=== PATIENT | male | born 1970 ===

== ENCOUNTER 2016-09-22 00:55 | Inpatient (IN) | payer MEDICAID, OTHER ==
[2016-09-22] VITALS (18 sets, daily range): BP systolic 104–127; BP diastolic 61–96; PULSE 70–98; RESP 16–23; Ht 180.3 cm; Wt 82.0 kg
[~2016-09-22] VITALS: Ht 180.3 cm; Wt 82.0 kg
[2016-09-22] MEDS ORDERED: SOD CHLORIDE 0.9% 500 ML IV STA (00:59)
[2016-09-22] MEDS ORDERED: HEPARIN 5,000 UNIT/0.5 ML VIAL SC ONE (01:00)
[2016-09-22] MEDS ORDERED: TICAGRELOR 90 MG TABLET PO ONE (01:00)
[2016-09-22] MEDS ORDERED: ONDANSETRON 4 MG INJ IV STA (01:02)
[2016-09-22] MEDS ORDERED: morphine 4 MG/ML VIAL IV STA (01:02)
[2016-09-22 01:10] LABS: ADD SCAN DIFF NO
[2016-09-22 01:13] LABS: BASOPHIL # 0.1 10^3/ul (0.0-0.1); BASOPHILS % 0.3 % (0.0-2.0); EOSINOPHILS % 0.1 % (0.0-7.0); HEMATOCRIT 44.3 % (42.0-52.0); HEMOGLOBIN 14.9 g/dl (14.0-18.0); LYMPHOCYTES # 1.4 10^3/ul (0.8-2.9); LYMPHOCYTES % 9.1 % (15.0-51.0); MEAN CORPUSCULAR HEMOGLOBIN 29.5 pg (29.0-33.0); MEAN CORPUSCULAR HGB CONC 33.6 g/dl (32.0-37.0); MEAN CORPUSCULAR VOLUME 87.7 fl (82.0-101.0); MEAN PLATELET VOLUME 9.6 fl (7.4-10.4); MONOCYTE # 0.6 10^3/ul (0.3-0.9); MONOCYTES % 3.7 % (0.0-11.0); NEUTROPHIL # 13.4 10^3/ul (1.6-7.5); NEUTROPHILS % 86.1 % (39.0-77.0); PLATELET COUNT 345 10^3/UL (140-415); RED BLOOD COUNT 5.05 10^6/ul (4.70-6.10); RED CELL DISTRIBUTION WIDTH 11.2 % (11.5-14.5); WHITE BLOOD COUNT 15.6 10^3/ul (4.8-10.8)
[2016-09-22] MEDS ORDERED: IODIXANOL LOCM 50 ML BTL ONE (01:13)
[2016-09-22] MEDS ORDERED: IODIXANOL LOCM 100 ML BTL ONE ×3 (01:13→01:59)
[2016-09-22] MEDS ORDERED: LIDOCAINE 1% (MDV) 20 ML INJ ONE (01:13)
[2016-09-22] MEDS ORDERED: NITROGLYCERIN (IC) 100 MCG/ML INJ ONE (01:14)
[2016-09-22] MEDS ORDERED: VERAPAMIL 5 MG INJ ONE (01:14)
--- NOTE | 2016-09-22 01:16 | ERA ---
ER Documentation Chief Complaint Date/Time DATE: 09/22/16 TIME: 01:13 Chief Complaint Chest pain code stemi from [facility]. HPI This is a 45-year-old male who began having chest pain approximately 2 hours ago described as substernal chest pressure with no radiation no shortness of breath but he did have diaphoresis. No palpitations no syncope or dizziness. Patient has a history of hypertension and diabetes does not smoke no high cholesterol. Patient was seen at [facility] in the emergency room and he was transferred here for higher level of care. Patient's pain currently is 4 out of 10. He received nitroglycerin at [place] [facility] and his blood pressure dropped to 80 and he received some IV fluids which raised his blood pressure. The patient has a history of itching after aspirin so aspirin was held. ROS All systems reviewed and are negative except as per history of present illness. Allergies Allergies: Coded Allergies: aspirin (Verified Allergy, Unknown, 09/22/16) FmHx Family History: No coronary disease Physical Exam Vitals Vital Signs Date Time Temp Pulse Resp B/P Pulse Ox O2 Delivery O2 Flow Rate FiO2 09/22/16 01:11 96 20 130/88 100 Room Air 09/22/16 01:02 Nasal Cannula 4 09/22/16 01:00 94 20 113/66 100 Physical Exam Const: Well-developed, well-nourished Head: Atraumatic, normocephalic Eyes: Normal Conjunctiva, PERRLA, EOMI, normal sclera, no nystagmus ENT: Normal External Ears, Nose and Mouth, moist mucus membranes. Neck: Full range of motion. No meningismus, no lymphadenopathy. Resp: Clear to auscultation bilaterally, no wheezing, rhonchi, rales Cardio: Regular rate and rhythm, no murmurs, S1 S2 present Abd: Soft, non tender x 4, non distended. Normal bowel sounds, no guarding or rebound, no pulsitile abdominal masses or bruits Skin: No petechiae or rashes, no ecchymosis , no maculopapular rash Back: No midline or flank tenderness Ext: No cyanosis, or edema, FROM x 4, normal inspection, neurovascularly intact x 4 Neur: Awake and alert, STR 5/5 x 4, sensation intact x 4, no focal findings, cerebellum intact Psych: Normal Mood and Affect Results 24 hrs Current Medications Medications (Trade) Dose Ordered Sig/Leander Route PRN Reason Start Time Stop Time Status Last Admin Dose Admin Sodium Chloride (NS) 500 ml @ 500 mls/hr Q1H STAT IV 09/22/16 00:59 09/22/16 01:58 09/22/16 01:11 Ticagrelor (Brilinta) 180 mg ONCE ONCE PO 09/22/16 01:00 09/22/16 01:02 DC 09/22/16 01:07 Heparin Sodium (Porcine) (Heparin (5000 Units/0.5 ml)) 5,000 unit ONCE ONCE SC 09/22/16 01:00 09/22/16 01:02 DC 09/22/16 01:08 Morphine Sulfate (morphine) 4 mg ONCE STAT IV 09/22/16 01:02 09/22/16 01:03 DC 09/22/16 01:08 Ondansetron HCl (Zofran Inj) 4 mg ONCE STAT IV 09/22/16 01:02 09/22/16 01:03 DC 09/22/16 01:07 Procedures/MDM EKG: Rate/Rhythm: Normal sinus rhythm with ST elevation in leads I, aVL with Q waves in leads V1 through V3 with reciprocal ST elevation, there is ST depression in leads II, 3 QRS, ST, QT: NORMAL TN, QRS, QT] Impression: [Acute [place] Reducing Salon Attendant was notified prior to patient's arrival Warehouse Engineer was called and patient taken to Warehouse Engineer at 0116 Critical Care Time: 30 minutes Treatments/Evaluations: Close monitoring and treatment of unstable vital signs, cardiorespiratory, and neurologic status, while maintaining tight balance of fluid, respiratory, and cardiac interventions. This time includes discussing the case with the patient and the patient's family. This time does not include all procedures stated elsewhere in this record. This time also includes reviewing old records, labs and radiological studies. This time includes examining and re-examining the patient. Additionally, this time also includes arranging care with admitting and consulting physicians. Departure Diagnosis: Primary Impression: Acute [place] Qualified Code: I21.21 - Acute ST elevation myocardial infarction (STEMI) involving left circumflex coronary artery Condition: Stable SPENSER DUMONT DO September 22, 2016 01:16
[2016-09-22 01:17] LABS: CALCIUM 9.2 mg/dl (8.4-10.2); CREATININE 1.04 mg/dl (0.61-1.24); POTASSIUM 5.3 mmol/L (3.5-5.1)
[2016-09-22] MEDS ORDERED: ASPIRIN 325 MG TAB ONE (01:21)
[2016-09-22] MEDS ORDERED: MIDAZOLAM 1 MG/ML 2 ML INJ ONE (01:23)
[2016-09-22] MEDS ORDERED: FENTAnyl 50 MCG/ML VIAL ONE (01:23)
--- NOTE | 2016-09-22 01:24 | CONS ---
Date/Time of Note Date/Time of Note DATE: 09/22/16 TIME: 01:22 Assessment/Plan Assessment/Plan Chief Complaint/Hosp Course Impression: Anterior STEMI Abnormal EKG Chest pain DM HTN Recommendation/plan: proceed emergently with cardiac cath; further recs pending results of angiogram. Problems: Consultation Date/Type/Reason Admit Date/Time Date of Consultation: September 22, 2016 Type of Consultation: Cardiology Reason for Consultation STEMI Hx of Present Illness The patient is a 45 y/o male with history of DM, HTN presents as transfer from [facility] for acute STEMI; transferred emergently to cardiac laborer [facility] per Acute [place] protocol. Exam/Review of Systems Vital Signs Vitals Vital Signs Date Time Temp Pulse Resp B/P Pulse Ox O2 Delivery O2 Flow Rate FiO2 09/22/16 01:11 96 20 130/88 100 Room Air 09/22/16 01:02 4 Exam Respiratory: clear to auscultation, normal air movement Cardiovascular: nl pulses, regular rate and rhythm Gastrointestinal: soft Extremities: normal pulses Results Result Diagram: 09/22/16 0055 Results 24 hrs Laboratory Tests Test 09/22/16 00:55 White Blood Count 15.6 H Red Blood Count 5.05 Hemoglobin 14.9 Hematocrit 44.3 Mean Corpuscular Volume 87.7 Mean Corpuscular Hemoglobin 29.5 Mean Corpuscular Hemoglobin Concent 33.6 Red Cell Distribution Width 11.2 L Platelet Count 345 Mean Platelet Volume 9.6 Neutrophils % 86.1 H Lymphocytes % 9.1 L Monocytes % 3.7 Eosinophils % 0.1 Basophils % 0.3 Nucleated Red Blood Cells % 0.0 Neutrophils # 13.4 H Lymphocytes # 1.4 Monocytes # 0.6 Eosinophils # 0.0 Basophils # 0.1 Nucleated Red Blood Cells # 0.0 FELIPE VÁSQUEZ September 22, 2016 01:24
[2016-09-22 01:34] LABS: TROPONIN-I 0.202 ng/ml (0.00-0.12)
[2016-09-22] MEDS ORDERED: HEPARIN 1000 UNITS/ML 10 ML INJ ONE (01:41)
[2016-09-22 01:42] LABS: INR 0.95; PARTIAL THROMBOPLASTIN TIME 27.5 Sec (25.0-35.0); PROTIME 12.7 Sec (12.2-14.2)
--- NOTE | 2016-09-22 01:59 | RADRPT ---
PROCEDURE: Chest. CLINICAL INDICATION: Chest pain. TECHNIQUE: Single frontal view of the chest was obtained. COMPARISON: None. FINDINGS: The cardiac silhouette is enlarged. The aortic arch is unremarkable. There is mild pulmonary venou s congestion. There is no focal consolidation or pleural effusion. There is no pneumothorax. IMPRESSION: Mild cardiomegaly and pulmonary venous congestion. .Massimo Meraz MD, Date Time Electronically viewed and signed by .Massimo Meraz MD, MD on 09/22/2016 01:58 .T/
[2016-09-22] MEDS ORDERED: SOD CHLORIDE 0.45% 1,000 ML IV SCH (02:10)
--- NOTE | 2016-09-22 02:18 | EN ---
Date/Time of Note Date/Time of Note DATE: 09/22/16 TIME: 02:12 Event Note Cardiology Cardiology Event Note DATE OF PROCEDURE: 09/22/2016 ANTHROPOLOGICAL LINGUIST: Yeison Vásquez MD PROCEDURES PERFORMED: 1. Balloon angioplasty and stent placement of the mid LAD with drug-eluting stent Synergy 3.0 x 12 2. Left heart catheterization. 3. Right femoral angiogram. 4. Closure device applied to right femoral arteriotomy site. PREINTERVENTION DIAGNOSIS: 1. Acute Anterior ST elevation myocardial infarction. POSTINTERVENTION DIAGNOSES: 1. Acute Anterior ST elevation myocardial infarction. SEDATION: Conscious sedation with fentanyl 50 mcg IV and Versed 1 mg IV. DESCRIPTION OF PROCEDURE: The patient placed on surveillance system monitor, pulse oximetry and supplemental oxygen as necessary. The right groin [] was prepped and draped in a sterile fashion and infiltrated with 1% lidocaine. Via the Seldinger technique, the right femoral artery was accessed. A 6-Turkish sheath was inserted and through this the right coronary catheter and left coronary catheter and pigtail were advanced into the right coronary artery and left coronary artery and the left ventricle. Placement confirmed by fluoroscopy and hemodynamics. CATHETERIZATION FINDINGS: 1. Left main: 20% distal disease 2. LAD: Large caliber vessel with mid 90% occlusion 3. Circumflex: 40-50% diffuse disease 4. Obtuse marginal: 80% proximal disease 5. RCA: Large dominant vessel with 30% diffuse disease 6. PDA: Proximal 80% disease HEMODYNAMICS: LVEDP 20. No significant aortic valve gradient on pigtail pullback. RATIONALE FOR INTERVENTIONAL PROCEDURE: Decision was made to intervene on the LAD due to the occlusive nature of the lesion angiographically and patient's presentation of chest pain in the setting of anterior STEMI. Drug-eluting stent was placed because of vessel size and no contraindication to dual antiplatelet therapy. MEDICATIONS GIVEN DURING PROCEDURE: IV Heparin Please note that aspirin and Ticagrelor were given in the emergency department. ANGIOPLASTY EQUIPMENT: 1. Guide: 6-Turkish XB 3.5 2. Wire: Whisper. 3. Balloon: Emerge 2.0 x 12 4. Stent: SCOTT Synergy 3.0 x 12 DESCRIPTION OF INTERVENTIONAL PROCEDURE: The guide catheter was advanced in the usual manner and the left main was engaged. Angioplasty wire was then used to successfully cross the lesion. Next, the lesion was predilated with the Emerge balloon to nominal pressures x 12. Repeat angiogram at this time revealed GOYO 3 flow. The stent was then placed across the lesion and successfully deployed at 14 atmospheres. Final coronary angiogram revealed adequate stent expansion, GOYO 3 flow, and no dissection. TOTAL CONTRAST: 100cc FLUOROSCOPY TIME: 4.0 minutes. COMPLICATIONS: None. FINAL RESULTS: Successful balloon angioplasty and stent placement of the mid LAD with drug-eluting stent Synergy 3.0 x 12; Pre-intervention stenosis 90%, post-intervention stenosis less than 5%. RECOMMENDATIONS: 1. Continue aspirin 81 mg daily indefinitely. 2. Continue Plavix or Ticagrelor for a minimum of 1 year. 3. [place] aggressive medical therapy with aspirin, statin, beta nicholas. YEISON VÁSQUEZ September 22, 2016 02:18
[2016-09-22] MEDS ORDERED: POTASSIUM CHLORIDE 20 MEQ POWDER FOR ORAL SOLN PO PRN ×3 (02:30)
[2016-09-22] MEDS: INSULIN GLARGINE [LANtus] 3 ML PEN SC SCH ×2 (04:00→08:03)
--- NOTE | 2016-09-22 06:13 | HP ---
Date/Time of Note Date/Time of Note DATE: 09/22/16 TIME: 06:04 Assessment/Plan VTE Prophylaxis VTE Prophylaxis Intervention: SCD's Lines/Catheters IV Catheter Type (from [facility]): Peripheral IV Assessment/Plan Assessment/Plan 1. Acute STEMI. - s/p Balloon angioplasty and stent placement of the mid LAD for 90% occlusion with drug-eluting stent - cont currentl cardiac meds, mgmt per cardiology - f/u 2D-echo 2. HTN: BP at goal - cont meds 3. Diabetes with hyperglycemia - check A1c - insulin with adjustment as needed 4. Mild Hyperkalemia and mild hyponatremia - correct as needed 5. Leukocytosis - likely stress-induced reaction - Will however check UA - Monitor for now HPI/ROS Admit Date/Time Admit Date/Time Hx of Present Illness This is a 45 yo male with history of DM, HTN who was transferred from [facility] for acute STEMI. He is now s/p Balloon angioplasty and stent placement of the mid LAD for 90% occlusion with drug-eluting stent. He is currently in ICU in stable condition. Patient has a hx of non-compliance with medication. . PMH/Family/Social Past Medical History Medical History: diabetes, hypertension Social History Alcohol Use: none Smoking Status: Never smoker Drug Use: none Exam/Review of Systems Vital Signs Vitals Vital Signs Date Time Temp Pulse Resp B/P Pulse Ox O2 Delivery O2 Flow Rate FiO2 09/22/16 05:48 98 2.0 09/22/16 04:30 78 18 112/75 Nasal Cannula 09/22/16 03:00 98.4 Intake and Output 09/21/16 09/21/16 09/22/16 15:00 23:00 07:00 Intake Total 610 ml Balance 610 ml Exam Constitutional: alert, oriented, well developed Head: atraumatic, normocephalic Eyes: EOMI, PERRL Respiratory: clear to auscultation, normal air movement Cardiovascular: nl pulses, regular rate and rhythm Gastrointestinal: non-tender, soft Extremities: normal pulses Labs Result Diagram: 09/22/16 0055 09/22/16 005 Medications Medications Current Medications Aspirin (Halfprin) 81 mg DAILY PO ; Start 09/22/16 at 09:00 Ticagrelor (Brilinta) 90 mg BID PO ; Start 09/22/16 at 09:00 Metoprolol Tartrate (Lopressor) 25 mg BID PO ; Start 09/22/16 at 09:00 Atorvastatin Calcium (Lipitor) 80 mg DAILY@21 PO ; Start 09/22/16 at 21:00 Lisinopril 2.5 mg 2.5 mg DAILY PO ; Start 09/22/16 at 09:00 Sodium Chloride (1/2 NS) 1,000 ml @ 75 mls/hr [id number] IV Last administered on 09/22/16t 03:27; Admin Dose 75 MLS/HR; Start 09/22/16 at 02:10; Stop 09/22/16 at 15 :29 Insulin Glargine (Lantus) 10 unit DAILY@08 SC ; Start 09/22/16 at 04:00 Diagnostic Test (Pha) (Accu-Chek) 1 ea 02 XX ; Start 09/23/16 at 02:00 BRADFORD RICARDO MD September 22, 2016 06:13
[2016-09-22 06:29] LABS: ADD SCAN DIFF NO
[2016-09-22 06:35] LABS: BASOPHILS % 0.2 % (0.0-2.0); EOSINOPHILS % 0.1 % (0.0-7.0); HEMATOCRIT 42.5 % (42.0-52.0); HEMOGLOBIN 14.5 g/dl (14.0-18.0); LYMPHOCYTES # 1.9 10^3/ul (0.8-2.9); LYMPHOCYTES % 13.6 % (15.0-51.0); MEAN CORPUSCULAR HGB CONC 34.1 g/dl (32.0-37.0); MEAN CORPUSCULAR VOLUME 87.8 fl (82.0-101.0); MEAN PLATELET VOLUME 9.4 fl (7.4-10.4); MONOCYTE # 0.8 10^3/ul (0.3-0.9); MONOCYTES % 5.8 % (0.0-11.0); NEUTROPHILS % 79.9 % (39.0-77.0); PLATELET COUNT 320 10^3/UL (140-415); RED BLOOD COUNT 4.84 10^6/ul (4.70-6.10); RED CELL DISTRIBUTION WIDTH 11.6 % (11.5-14.5); WHITE BLOOD COUNT 13.8 10^3/ul (4.8-10.8)
[2016-09-22 06:48] LABS: CHOL/HDL RATIO 7.7 RATIO
[2016-09-22 06:52] LABS: ALBUMIN 4.3 g/dl (3.3-4.9); ALBUMIN/GLOBULIN RATIO 1.38; CREATININE 0.75 mg/dl (0.61-1.24); MAGNESIUM 1.9 mg/dl (1.7-2.5); PHOSPHORUS 3.9 mg/dl (2.5-4.9); POTASSIUM 4.2 mmol/L (3.5-5.1); TOTAL PROTEIN 7.4 g/dl (6.1-8.1)
[2016-09-22 07:19] LABS: THYROID STIMULATING HORMONE 1.04 MIU/L (0.465-4.680)
[2016-09-22] MEDS: INSULIN ASPART [NOVOLOG] 3 ML PEN SC SCH ×4 (08:02→20:47)
[2016-09-22] MEDS ORDERED: TICAGRELOR 90 MG TABLET PO SCH (09:00)
[2016-09-22] MEDS ORDERED: METOPROLOL 25 MG TAB PO SCH (09:00)
[2016-09-22] MEDS ORDERED: CLOPIDOGREL 75 MG TAB PO ONE (09:00)
--- NOTE | 2016-09-22 09:19 | QN ---
Documentation Comment Patient seen Vitals and lab reviewed Mild soreness in chest Ok to transfer to tele when cleared by Cardio. INDERJIT LUCAS. September 22, 2016 09:19
--- NOTE | 2016-09-22 09:42 | RADRPT ---
Echocardiogram Report Patient Name: MACEY NASH Gender: Male Date: 1970 Study Date: 22-Sep-2016 [employer] Senior Officer: Howard Marcelino RDCS Location: [facility] Ref. Physician: YEISON VÁSQUEZ Quality: Adequate Procedures: Transthoracic echocardiogram with complete 2D, M-Mode, and doppler examination. Indications: Acute Myocardial Infarction. 2D/M Mode Doppler Measurement Value Normal Ranges Measurement Value Normal Ranges LVIDd 2D 5.5 3.5 - 5.6 cm AV Peak Jared 0.9 m/sec LVIDs 2D 4.4 2.1 - 4.1 cm AV Peak PG 3.6 mmHg LVPWd 2D 1.1 0.6 - 1.1 cm LVOT Peak Jared 0.8 m/sec IVSd 2D 0.9 0.6 - 1.1 cm LVOT Peak PG 2.6 mmHg AoR Diam 2D 3.6 2.0 - 3.7 cm MV E Peak Jared 0.8 m/sec EDV 2D 146.7 cm3 MV A Peak Jared 0.7 m/sec ESV 2D 85.0 cm3 MV E/A 1.1 LA Dimen 2D 3.2 2.3 - 4.0 cm MV Decel Time 111 msec MV Decel Kidder 7 MV E/A 1.1 TR Peak Jared 1.5 m/sec TR Peak PG 8.7 mmHg RVSP 12.0 mmHg Findings Left Ventricle: Normal left ventricular cavity size. Mild concentric left ventricular hypertrophy. Severe global left ventricular systolic dysfunction. Ejection fraction is visually estimated at 30 %. Right Ventricle: Normal right ventricular size. Normal right ventricular systolic function. Left Atrium: The left atrium is normal in size. Right Atrium: The right atrium is normal in size. Mitral Valve: Mitral valve leaflets appear mildly thickened. Mild mitral annular calcification. There is trace to mild mitral valve regurgitation. Aortic Valve: No significant aortic stenosis or insufficiency. Aortic cusps appear mildly calcified. Tricuspid Valve: Normal appearance and function of the tricuspid valve with trace physiologic regurgitation. Normal right ventricular systolic pressure. Estimated peak PA systolic pressure 12 mmHg. Pulmonic Valve: Pulmonic valve not well visualized. Pericardium: Normal pericardium with no significant pericardial effusion. Aorta: Normal aortic root. IVC: Normal size and normal respiratory collapse consistent with normal right atrial pressure. Conclusions Normal left ventricular cavity size. Mild concentric left ventricular hypertrophy. Severe global left ventricular systolic dysfunction. Ejection fraction is visually estimated at 30 %. Mitral valve leaflets appear mildly thickened. Mild mitral annular calcification. There is trace to mild mitral valve regurgitation. Normal appearance and function of the tricuspid valve with trace physiologic regurgitation. Normal right ventricular systolic pressure. Estimated peak PA systolic pressure 12 mmHg. Electronically Signed By: Yeison Vásquez 22-Sep-2016 09:41:10 -0700 Patient Name: MACEY NASH Study Date: 22-Sep-2016 [id number]
[2016-09-22] MEDS: ASPIRIN (EC) 81 MG TAB PO SCH (09:45)
[2016-09-22] MEDS: LISINOPRIL 5 MG TAB PO SCH (09:45)
--- NOTE | 2016-09-22 09:49 | CONS ---
Date/Time of Note Date/Time of Note DATE: 09/22/16 TIME: 09:48 Assessment/Plan Assessment/Plan Chief Complaint/Hosp Course Impression: Anterior STEMI s/p PCI mid LAD Abnormal EKG Chest pain DM HTN Recommendation/plan: ASA 81mg daily Plavix 75mg daily Lipitor Coreg +Lisinopril therapy Educated on importance of diabetes management compliance Ok for transfer to telemetry Problems: Consultation Date/Type/Reason Admit Date/Time September 22, 2016 at 02:58 Initial Consult Date 09/22/16 Type of Consultation: Cardiology 24 HR Interval Summary Free Text/Dictation Tele SR no chest pain or palpitations Exam/Review of Systems Vital Signs Vitals Vital Signs Date Time Temp Pulse Resp B/P Pulse Ox O2 Delivery O2 Flow Rate FiO2 09/22/16 08:00 87 09/22/16 08:00 98.4 20 117/86 100 Nasal Cannula 2.0 Intake and Output 09/21/16 09/21/16 09/22/16 15:00 23:00 07:00 Intake Total 610 ml Balance 610 ml Exam Head: atraumatic, normocephalic Neck: non-tender, supple Respiratory: clear to auscultation, normal air movement Cardiovascular: nl pulses, regular rate and rhythm Gastrointestinal: non-tender, soft Extremities: normal pulses Results Result Diagram: 09/22/1660409/22/16 0605 Results 24 hrs Laboratory Tests Test 09/22/16 00:55 09/22/16 03:51 09/22/16 06:05 09/22/16 07:58 White Blood Count 15.6 H 13.8 H Red Blood Count 5.05 4.84 Hemoglobin 14.9 14.5 Hematocrit 44.3 42.5 Mean Corpuscular Volume 87.7 87.8 Mean Corpuscular Hemoglobin 29.5 30.0 Mean Corpuscular Hemoglobin Concent 33.6 34.1 Red Cell Distribution Width 11.2 L 11.6 Platelet Count 345 320 Mean Platelet Volume 9.6 9.4 Neutrophils % 86.1 H 79.9 H Lymphocytes % 9.1 L 13.6 L Monocytes % 3.7 5.8 Eosinophils % 0.1 0.1 Basophils % 0.3 0.2 Nucleated Red Blood Cells % 0.0 0.0 Neutrophils # 13.4 H 11.0 H Lymphocytes # 1.4 1.9 Monocytes # 0.6 0.8 Eosinophils # 0.0 0.0 Basophils # 0.1 0.0 Nucleated Red Blood Cells # 0.0 0.0 Prothrombin Time 12.7 Prothrombin Time Ratio 1.0 INR International Normalized Ratio 0.95 Activated Partial Thromboplast Time 27.5 Sodium Level 134 L 135 Potassium Level 5.3 H 4.2 Chloride Level 98 101 Carbon Dioxide Level 27 26 Anion Gap 14 12 Blood Urea Nitrogen 13 12 Creatinine 1.04 0.75 Glucose Level 358 H 240 #H Calcium Level 9.2 9.0 Troponin I 0.202 *H 11.400 *H B-Type Natriuretic Peptide 243 H Bedside Glucose 259 H 187 Hemoglobin A1c 9.6 H Phosphorus Level 3.9 Magnesium Level 1.9 Total Bilirubin 1.0 Direct Bilirubin 0.00 Indirect Bilirubin 1.0 Aspartate Amino Transf (AST/SGOT) 222 H Alanine Aminotransferase (ALT/SGPT) 82 H Alkaline Phosphatase 96 Total Protein 7.4 Albumin 4.3 Globulin 3.10 Albumin/Globulin Ratio 1.38 Triglycerides Level 261 H Cholesterol Level 201 H LDL Cholesterol, Calculated 123 HDL Cholesterol 26 L Cholesterol/HDL Ratio 7.7 Thyroid Stimulating Hormone (TSH) 1.040 Medications Medications Current Medications Aspirin (Halfprin) 81 mg DAILY PO ; Start 09/22/16 at 09:00 Metoprolol Tartrate (Lopressor) 25 mg BID PO ; Start 09/22/16 at 09:00 Atorvastatin Calcium (Lipitor) 80 mg DAILY@21 PO ; Start 09/22/16 at 21:00 Lisinopril 2.5 mg 2.5 mg DAILY PO ; Start 09/22/16 at 09:00 Sodium Chloride (1/2 NS) 1,000 ml @ 75 mls/hr [id number] IV Last administered on 09/22/16 03:27; Admin Dose 75 MLS/HR; Start 09/22/16 at 02:10; Stop 09/22/16 at 15 :29 Insulin Glargine (Lantus) 10 unit DAILY@08 SC Last administered on 09/22/16 08: 03; Admin Dose 10 UNIT; Start 09/22/16 at 04:00 Diagnostic Test (Pha) (Accu-Chek) 1 ea 02 XX ; Start 09/23/16 at 02:00 Clopidogrel Bisulfate (plaVIX) 75 mg DAILY PO ; Start 09/23/16 at 09:00 FELIPE VÁSQUEZ September 22, 2016 09:49
[2016-09-22 19:44] LABS: ADD UMIC YES; URINE BILIRUBIN (Dip) NEGATIVE (NEGATIVE); URINE BLOOD (Dip) TRACE (NEGATIVE); URINE COLOR LT. YELLOW (YELLOW); URINE KETONES (Dip) NEGATIVE (NEGATIVE); URINE LEUKOCYTE ESTERASE (Dip) NEGATIVE (NEGATIVE); URINE NITRITE (Dip) NEGATIVE (NEGATIVE); URINE TOTAL PROTEIN (Dip) NEGATIVE (NEGATIVE); URINE UROBILINOGEN (Dip) 0.2 E.U./dL (0.1-1.0)
[2016-09-22 19:55] LABS: URINE RBCS 0-2 /HPF (0)
[2016-09-22] MEDS: ATORVASTATIN 80 MG TAB PO SCH (20:41)
[2016-09-23] VITALS (13 sets, daily range): BP systolic 91–108; BP diastolic 62–72; PULSE 84–106; RESP 17–20
[2016-09-23] MEDS ORDERED: ACCU-CHEK XX SCH (02:00)
[2016-09-23] MEDS: ACCU-CHEK XX SCH (02:00)
[2016-09-23] MEDS: LISINOPRIL 5 MG TAB PO SCH (08:12)
[2016-09-23] MEDS: ASPIRIN (EC) 81 MG TAB PO SCH (08:15)
[2016-09-23] MEDS: CLOPIDOGREL 75 MG TAB PO SCH (08:16)
[2016-09-23] MEDS: INSULIN ASPART [NOVOLOG] 3 ML PEN SC SCH ×6 (08:20→20:33)
[2016-09-23] MEDS: INSULIN GLARGINE [LANtus] 3 ML PEN SC SCH (08:21)
[2016-09-23 10:16] LABS: ADD SCAN DIFF NO
[2016-09-23 10:21] LABS: HEMATOCRIT 43.9 % (42.0-52.0); HEMOGLOBIN 14.8 g/dl (14.0-18.0); MEAN CORPUSCULAR HEMOGLOBIN 30.1 pg (29.0-33.0); MEAN CORPUSCULAR HGB CONC 33.7 g/dl (32.0-37.0); MEAN CORPUSCULAR VOLUME 89.4 fl (82.0-101.0); MEAN PLATELET VOLUME 9.6 fl (7.4-10.4); PLATELET COUNT 365 10^3/UL (140-415); RED BLOOD COUNT 4.91 10^6/ul (4.70-6.10); RED CELL DISTRIBUTION WIDTH 11.7 % (11.5-14.5)
[2016-09-23 10:47] LABS: ALBUMIN 4.1 g/dl (3.3-4.9); CALCIUM 9.1 mg/dl (8.4-10.2); CREATININE 1.08 mg/dl (0.61-1.24); POTASSIUM 4.2 mmol/L (3.5-5.1); TOTAL PROTEIN 7.3 g/dl (6.1-8.1)
--- NOTE | 2016-09-23 11:25 | RADRPT ---
Vent Rate: 85 bpm RR Interval: 0 msec MO Interval: 170 msec QRS Duration: 98 msec QT Interval: 360 msec QTC Interval: 428 msec P-R-T P[place]: 44 - 158 - 64 degrees Normal sinus rhythm Right axis deviation Incomplete right bundle branch block Septal infarct , age undetermined Abnormal ECG Electronically Signed By: Srinivas Alvarado [id number]
[2016-09-23] MEDS ORDERED: GLUCOSE GEL 15 GRAM TUBE PO PRN ×2 (12:00)
[2016-09-23] MEDS ORDERED: DEXTROSE 50% 50 ML SYRINGE IV PRN ×2 (12:00)
[2016-09-23] MEDS ORDERED: GLUCOSE GEL 15 GRAM TUBE BUCCAL PRN (12:00)
[2016-09-23] MEDS ORDERED: GLUCAGON 1 MG INJ IM PRN (12:00)
[2016-09-23 13:24] LABS: BASOPHILS % 0.2 % (0.0-2.0); EOSINOPHILS % 0.7 % (0.0-7.0); LYMPHOCYTES % 21.5 % (15.0-51.0); MONOCYTES % 8.6 % (0.0-11.0); NEUTROPHILS % 68.6 % (39.0-77.0)
[2016-09-23 13:25] LABS: EOSINOPHILS # 0.1 10^3/ul (0.0-0.5); LYMPHOCYTES # 1.9 10^3/ul (0.8-2.9); MONOCYTE # 0.8 10^3/ul (0.3-0.9); NEUTROPHIL # 6.2 10^3/ul (1.6-7.5); TOTAL CELLS COUNTED % 100
[2016-09-23] MEDS ORDERED: NOVO3I SC (13:54)
[2016-09-23] MEDS ORDERED: METF850T PO (13:54)
[2016-09-23] MEDS ORDERED: LISI-313 PO (13:54)
[2016-09-23] MEDS ORDERED: CARV3.1260 PO (13:54)
[2016-09-23] MEDS ORDERED: ASPI-664 PO (13:54)
[2016-09-23] MEDS ORDERED: LANT3I SC (13:54)
[2016-09-23] MEDS ORDERED: ATOR80TA75 PO (13:54)
[2016-09-23] MEDS ORDERED: CLOP75TA28 PO (13:54)
--- NOTE | 2016-09-23 13:57 | PN ---
Date/Time of Note Date/Time of Note DATE: 09/23/16 TIME: 13:55 Assessment/Plan VTE Prophylaxis VTE Prophylaxis Intervention: ambulation, SCD's Lines/Catheters IV [facility]from [facility] Saline Lock Urinary Cath still in place: No Assessment/Plan Assessment/Plan 1. Acute STEMI. - s/p Balloon angioplasty and stent placement of the mid LAD for 90% occlusion with drug-eluting stent - cont currentl cardiac meds, mgmt per cardiology 2. HTN: BP at goal - cont meds 3. Diabetes with hyperglycemia - A1c 9.6 - insulin with adjustment as needed 4. Leukocytosis - resolved DISPO: * Titraye insulin, patient desirous of discharge, D/c if cleared by cardiology Subjective 24 Hr Interval Summary Constitutional: improved, no complaints Exam/Review of Systems Vital Signs Vitals Vital Signs Date Time Temp Pulse Resp B/P Pulse Ox O2 Delivery O2 Flow Rate FiO2 09/23/16 12:23 98.7 90 17 102/72 98 09/23/16 08:07 Room Air 09/22/16 13:00 2.0 Intake and Output 09/22/16 09/22/16 09/23/16 15:00 23:00 07:00 Intake Total 300 ml 150 ml Output Total 500 ml Balance -200 ml 150 ml Exam GENERAL: Patient is alert, oriented x 3, in no apparent distress; does not appear acutely or chronically ill. Patient is able to sit up unassisted.Patient makes good eye contact, is conversant, interactive, coherent. Patient appears calm and comfortable and is able to follow commands. HEENT: Oropharynx is clear. There is no carotid bruit, no masses. Patient's pupils are equal, round and reactive to light bilaterally. Extraocular motions are intact. There is no scleral icterus. There is no facial asymmetry. NECK: Supple. LUNGS: Clear to auscultation bilaterally with good air entry. No Wheezes or crackles. HEART: S1, S2. No murmur, gallops or rubs. Regular rate and rhythm. ABDOMEN: Soft, nontender. Normoactive bowel sounds. There are no stigmata of chronic liver disease. BACK: no costovertebral angle tenderness. GENITOURINARY: Deferred. EXTREMITIES: No edema. There is no cyanosis, clubbing. There are 2+ pulses bilaterally distally. NEUROLOGIC: The patient has no lateralizing signs. Cranial nerves II-XII are intact. SKIN: Otherwise, unremarkable. Results Result Diagram: 09/23/16 0955 09/23/16 0955 Results 24 hrs Laboratory Tests Test 09/22/16 16:00 09/22/16 17:27 09/22/16 20:40 09/23/16 03:53 Urine Color LT. YELLOW Urine Clarity CLEAR Urine pH 5.5 Urine Specific [place] 1.020 Urine Ketones NEGATIVE Urine Nitrite NEGATIVE Urine Bilirubin NEGATIVE Urine Urobilinogen 0.2 E.U./dL Urine Leukocyte Esterase NEGATIVE Urine Microscopic RBC 0-2 Urine Microscopic WBC 0-2 Urine Hemoglobin TRACE Urine Glucose 0.25% H Urine Total Protein NEGATIVE Bedside Glucose 172 223 H 230 H Test 09/23/16 07:58 09/23/16 09:55 09/23/16 11:46 Bedside Glucose 241 H 218 White Blood Count 9.0 # Red Blood Count 4.91 Hemoglobin 14.8 Hematocrit 43.9 Mean Corpuscular Volume 89.4 Mean Corpuscular Hemoglobin 30.1 Mean Corpuscular Hemoglobin Concent 33.7 Red Cell Distribution Width 11.7 Platelet Count 365 Mean Platelet Volume 9.6 Neutrophils % 68.6 Band Neutrophils % 0.0 Lymphocytes % 21.5 Monocytes % 8.6 Eosinophils % 0.7 Basophils % 0.2 Nucleated Red Blood Cells % 0.0 Neutrophils # 6.2 Lymphocytes # 1.9 Monocytes # 0.8 Eosinophils # 0.1 Basophils # 0.0 Nucleated Red Blood Cells # 0.0 Sodium Level 133 L Potassium Level 4.2 Chloride Level 97 Carbon Dioxide Level 28 Anion Gap 12 Blood Urea Nitrogen 19 Creatinine 1.08 Glucose Level 322 H Calcium Level 9.1 Magnesium Level 2.0 Total Bilirubin 1.0 Direct Bilirubin 0.00 Indirect Bilirubin 1.0 Aspartate Amino Transf (AST/SGOT) 86 #H Alanine Aminotransferase (ALT/SGPT) 72 H Alkaline Phosphatase 83 Total Protein 7.3 Albumin 4.1 Medications Medications Current Medications Aspirin (Halfprin) 81 mg DAILY PO Last administered on 09/23/16 08:15; Admin Dose 81 MG; Start 09/22/16 at 09:00 Atorvastatin Calcium (Lipitor) 80 mg DAILY@21 PO Last administered on 09/22/16 20:41; Admin Dose 80 MG; Start 09/22/16 at 21:00 Lisinopril (Zestril) 2.5 mg DAILY PO Last administered on 09/22/16 09:45; Admin Dose 2.5 MG; Start 09/22/16 at 09:00 Diagnostic Test (Pha) (Accu-Chek) 1 ea 02 XX Last administered on 09/23/16 02: 00; Admin Dose 1 EA; Start 09/23/16 at 02:00 Clopidogrel Bisulfate (plaVIX) 75 mg DAILY PO Last administered on 09/23/16 08: 16; Admin Dose 75 MG; Start 09/23/16 at 09:00 Carvedilol (Coreg) 3.125 mg BID PO Last administered on 09/22/16 20:41; Admin Dose 3.125 MG; Start 09/22/16 at 10:00 Miscellaneous Information 1 ea NOTE XX ; Start 09/23/16 at 12:00 Glucose (Glutose) 15 gm Q15M PRN PO DECREASED GLUCOSE; Start 09/23/16 at 12:00 Glucose (Glutose) 22.5 gm Q15M PRN PO DECREASED GLUCOSE; Start 09/23/16 at 12:00 Dextrose (D50w Syringe) 25 ml Q15M PRN IV DECREASED GLUCOSE; Start 09/23/16 at 12:00 Dextrose (D50w Syringe) 50 ml Q15M PRN IV DECREASED GLUCOSE; Start 09/23/16 at 12:00 Glucagon (Glucagen) 1 mg Q15M PRN IM DECREASED GLUCOSE; Start 09/23/16 at 12:00 Glucose (Glutose) 15 gm Q15M PRN BUCCAL DECREASED GLUCOSE; Start 09/23/16 at 12: 00 Insulin Glargine (Lantus) 15 unit DAILY@08 SC ; Start 09/24/16 at 08:00 Insulin Glargine (Lantus) 5 unit ONCE ONCE SC ; Start 09/23/16 at 14:00; Stop at 14:01; Status INDERJIT SANCHEZ September 23, 2016 13:57
[2016-09-23] MEDS ORDERED: INSULIN GLARGINE [LANtus] 3 ML PEN SC ONE (14:00)
[2016-09-23] MEDS ORDERED: INSULIN ASPART [NOVOLOG] 3 ML PEN SC SCH (17:55)
--- NOTE | 2016-09-23 18:38 | PDOCDIS ---
Discharge Instructions DIAGNOSIS Discharge Diagnosis: STEMI CONDITION Patient Condition: Stable HOME CARE INSTRUCTIONS: Special Diet: 2GM NA 1800 MYRTLE ACTIVITY: Activity Restrictions: Slowly Increase Activity Rest between Activity FOLLOW UP/APPOINTMENTS Appointments Followup with your primary doctor within the next 1-2 weeks. If you don't have one please let someone know, we can give you resources that may help you pick one. You may call Dr Kvng Hackett's office. he's accepting new patients Name, Degree: Kvng Hackett MD Specialty: Internal Medicine Comments: Office Address: [address] [place] [address] [place] [address] Office Office You may also call your insurance company to assign one to you. Review your medication list with your nurse before leaving and if you need new prescriptions please let your nurse know. I may have made changes to your home medications or given you new prescriptions , please let your primary doctor know as well. Stay compliant with your medications and report any side effects to your PCP or pharmacist. Return to the ER if you have any concerns and cannot reach your doctors or call your insurance company, they usually have a nurse that can help you. INDERJIT LUCAS September 23, 2016 18:38
--- NOTE | 2016-09-23 18:39 | DS ---
Date/Time of Note Date/Time of Note DATE: 09/23/16 TIME: 18:38 Discharge Summary Admission/Discharge Info Admit Date/Time September 22, 2016 at 02:58 Discharge Date/Time 1. Acute STEMI.- s/p Balloon angioplasty and stent placement of the mid LAD for 90% occlusion with drug-eluting stent 2. HTN: controlled 3. Type 2 Diabetes- A1c 9.6 4. Dyslipidemia 5. Cardiomyopathy EF 30% Patient Condition: Stable Hx of Present Illness This is a 45 yo male with history of DM, HTN who was transferred from [facility] for acute STEMI. He is now s/p Balloon angioplasty and stent placement of the mid LAD for 90% occlusion with drug-eluting stent. He is currently in ICU in stable condition. Patient has a hx of non-compliance with medication. . Hospital Course Impression: Anterior STEMI s/p PCI mid LAD Abnormal EKG Chest pain DM HTN Recommendation/plan: ASA 81mg daily Plavix 75mg daily Lipitor Coreg +Lisinopril therapy Educated on importance of diabetes management compliance Ok for transfer to telemetry Home Meds Active Scripts Metformin Hcl* (Metformin Hcl*) 850 Mg Tablet, 850 MG PO WITH BREAKFAST DINNE for 90 Days, TAB 2 Refills Prov:09/23/16 Insulin Aspart* (Novolog Insulin Pen*) 100 Unit/Ml Soln, 3 UNIT SC WITH MEALS for 90 Days, 2 Refills Prov:09/23/16 Insulin Glargine* (Lantus*) 100 Unit/Ml Soln, 15 UNIT SC DAILY@08 for 90 Days, 2 Refills Prov:LANCEDhiraj 09/23/16 Aspirin* (Aspirin* EC) 81 Mg Tablet.dr, 81 MG PO DAILY for 90 Days, 2 Refills Prov:[facility]09/23/16 Lisinopril* (Lisinopril*) 5 Mg Tablet, 2.5 MG PO DAILY for 90 Days, TAB 2 Refills Prov:09/23/16 Carvedilol* (Carvedilol*) 3.125 Mg Tablet, 3.125 MG PO BID for 90 Days, TAB 2 Refills Prov[facility] 09/23/16 Atorvastatin* (Atorvastatin*) 80 Mg Tablet, 80 MG PO DAILY@21 for 90 Days, TAB 2 Refills Prov:INDERJIT LUCAS. 09/23/16 Clopidogrel Bisulfate (Clopidogrel) 75 Mg Tablet, 75 MG PO DAILY for 90 Days, TAB 2 Refills Prov:INDERJIT LUCAS. 09/23/16 Pending Labs Laboratory Tests Test 09/22/16 20:40 09/23/16 03:53 09/23/16 07:58 09/23/16 09:55 Bedside Glucose 223mg/dL (70-220) 230mg/dL (70-220) 241mg/dL (70-220) White Blood Count 9.010^3/ul (4.8-10.8) Red Blood Count 4.9110^6/ul (4.70-6.10) Hemoglobin 14.8g/dl (14.0-18.0) Hematocrit 43.9% (42.0-52.0) Mean Corpuscular Volume 89.4fl (82.0-101.0) Mean Corpuscular Hemoglobin 30.1pg (29.0-33.0) Mean Corpuscular Hemoglobin Concent 33.7g/dl (32.0-37.0) Red Cell Distribution Width 11.7% (11.5-14.5) Platelet Count 65363^3/UL (140-415) Mean Platelet Volume 9.6fl (7.4-10.4) Neutrophils % 68.6% (39.0-77.0) Band Neutrophils % 0.0% (0.0-5.0) Lymphocytes % 21.5% (15.0-51.0) Monocytes % 8.6% (0.0-11.0) Eosinophils % 0.7% (0.0-7.0) Basophils % 0.2% (0.0-2.0) Nucleated Red Blood Cells % 0.0/100WBC (0.0-0.0) Neutrophils # 6.210^3/ul (1.6-7.5) Lymphocytes # 1.910^3/ul (0.8-2.9) Monocytes # 0.810^3/ul (0.3-0.9) Eosinophils # 0.110^3/ul (0.0-0.5) Basophils # 0.010^3/ul (0.0-0.1) Nucleated Red Blood Cells # 0.010^3/ul (0.0-0.0) Sodium Level 133mmol/L (135-144) Potassium Level 4.2mmol/L (3.5-5.1) Chloride Level 97mmol/L (97-110) Carbon Dioxide Level 28mmol/L (21-31) Anion Gap 12 (8-16) Blood Urea Nitrogen 19mg/dl (7-20) Creatinine 1.08mg/dl (0.61-1.24) Glucose Level 322mg/dl (70-220) Calcium Level 9.1mg/dl (8.4-10.2) Magnesium Level 2.0mg/dl (1.7-2.5) Total Bilirubin 1.0mg/dl (0.2-1.3) Direct Bilirubin 0.00mg/dl (0.00-0.20) Indirect Bilirubin 1.0mg/dl (0-1.1) Aspartate Amino Transf (AST/SGOT) 86IU/L (15-46) Alanine Aminotransferase (ALT/SGPT) 72IU/L (13-69) Alkaline Phosphatase 83IU/L (42-121) Total Protein 7.3g/dl (6.1-8.1) Albumin 4.1g/dl (3.3-4.9) Test 09/23/16 11:46 09/23/16 17:13 Bedside Glucose 218mg/dL (70-220) 155mg/dL (70-220) INDERJIT LUCAS September 23, 2016 18:39 (70-220) INDERJIT LUCAS September 23, 2016 18:39
[2016-09-23] MEDS: ATORVASTATIN 80 MG TAB PO SCH (20:21)
[2016-09-24 00:39] VITALS: PULSE 97
[2016-09-24] MEDS: ACCU-CHEK XX SCH (02:00)
[2016-09-24 03:26] VITALS: BP 116/73; RESP 19
[2016-09-24 04:46] VITALS: PULSE 89
[2016-09-24 07:10] VITALS: BP 98/56; RESP 18
[2016-09-24] MEDS ORDERED: INSULIN GLARGINE [LANtus] 3 ML PEN SC SCH (08:00)
[2016-09-24] MEDS: INSULIN ASPART [NOVOLOG] 3 ML PEN SC SCH ×4 (08:06→11:50)
[2016-09-24] MEDS: ASPIRIN (EC) 81 MG TAB PO SCH (08:12)
[2016-09-24] MEDS: CLOPIDOGREL 75 MG TAB PO SCH (08:12)
[2016-09-24 08:21] VITALS: PULSE 83
[2016-09-24] MEDS: LISINOPRIL 5 MG TAB PO SCH (08:51)
[2016-09-24 10:31] LABS: ADD SCAN DIFF NO
[2016-09-24 10:37] LABS: BASOPHILS % 0.4 % (0.0-2.0); EOSINOPHILS # 0.2 10^3/ul (0.0-0.5); EOSINOPHILS % 1.6 % (0.0-7.0); HEMATOCRIT 43.8 % (42.0-52.0); HEMOGLOBIN 14.6 g/dl (14.0-18.0); LYMPHOCYTES % 20.5 % (15.0-51.0); MEAN CORPUSCULAR HEMOGLOBIN 29.7 pg (29.0-33.0); MEAN CORPUSCULAR HGB CONC 33.3 g/dl (32.0-37.0); MEAN PLATELET VOLUME 9.5 fl (7.4-10.4); MONOCYTE # 0.8 10^3/ul (0.3-0.9); MONOCYTES % 8.3 % (0.0-11.0); NEUTROPHIL # 6.8 10^3/ul (1.6-7.5); NEUTROPHILS % 68.5 % (39.0-77.0); PLATELET COUNT 360 10^3/UL (140-415); RED BLOOD COUNT 4.92 10^6/ul (4.70-6.10); RED CELL DISTRIBUTION WIDTH 11.8 % (11.5-14.5)
[2016-09-24 10:50] LABS: POTASSIUM 3.9 mmol/L (3.5-5.1)
[2016-09-24 10:52] LABS: CREATININE 0.91 mg/dl (0.61-1.24)
[2016-09-24 12:21] VITALS: PULSE 91
--- NOTE | 2016-09-24 18:13 | HP ---
DATE OF ADMISSION: 09/22/2016 PRESENTING COMPLAINT: Acute ST elevation myocardial infarction. FINAL DIAGNOSES: 1. Anterior ST elevation myocardial infarction, status post percutaneous coronary intervention to the mid left anterior descending. 2. Abnormal electrogram. Previous chest pain, now resolved. 3. Diabetes mellitus with good control. 4. Hypertension, also controlled. 5. Noncompliance to therapy secondary to inability to purchase medications. 6. Dyslipidemia, on statin. CONSULTS ON THE CASE: [facility]. INTERVENTIONS: The patient underwent balloon angioplasty and stent placement to the mid LAD with drug-eluting stent, and left heart catheterization on 2016. HOSPITALIZATION COURSE: Full details are available in chart for review. In summary, this patient was referred to our hospital from [facility] because of an acute ST elevation myocardial infarction from the emergency room. We were unable to perform a coronary angiogram ____ the geometrician and he was taken immediately to the laborer [facility] upon arrival. He had a stent placed to his LAD and was observed in the intensive care unit afterwards. He had an echocardiogram done also 09/22/2016 that showed a low ejection fraction of 30%, but a normal peak PA systolic pressure and no real significant valvular abnormalities. Postoperatively, he did well. He was ready to be discharged yesterday, September 23, but his discharge was held because we needed to make sure that he was able to get his medications and so today has been seen by a social media content manager. He does have a temporary medical in place which will help him get his medications for sure. We assisted him in applying for full scope medical that will help him continue to get his meds. He is happy with the care and is stable for discharge. DISCHARGE MEDICATIONS: 1. Metformin 850 mg p.o. b.i.d. 2. NovoLog 3 units subcu with meals. 3. Lantus 15 units subq daily. 4. Aspirin 81 mg p.o. daily. 5. Lisinopril 2.5 mg p.o. daily. 6. Coreg 3.125 b.i.d. 7. Lipitor 80 mg p.o. daily. 8. Plavix 75 mg p.o. daily for a minimum of 1 year. RECOMMENDED DIET: An 1800 ADA, low cholesterol, low fat. ACTIVITY: As tolerated. FOLLOWUP: The patient encouraged to follow up with outpatient free clinic or contact his insurance company for PCP assignment and [place] with cardiology. Our information and contact paperwork has been given to this effect. Dictated By: INDERJIT LUCAS MD, BA/CRYSTAL Conf#: [id number] DID#: [id number] MTDD
[2016-09-24] MEDS ORDERED: [UNRECOGNIZED DRUG - CODE] MC (19:36)
[2016-09-24] MEDS ORDERED: SYRI-1417 MC (19:36)
== END 2016-09-24 12:19 | disposition home or self-care (01) | DRG 247 ==
LOC: E/R 00:55 → TEL 01:15 → ICU 02:58 → TEL 14:14
PROVIDERS: ADMIT Internal Medicine; ATTEND Internal Medicine
PROC: 027034Z Dilation of Coronary Artery, One Artery with Drug-eluting Intraluminal Device, Percutaneous Approach (ICD-10-PCS; principal; 2016-09-22 01:30)
DX: I21.09 ST elevation (STEMI) myocardial infarction involving other coronary artery of anterior wall (principal); I42.9 Cardiomyopathy, unspecified; E87.1 Hypo-osmolality and hyponatremia; I10 Essential (primary) hypertension; E11.65 Type 2 diabetes mellitus with hyperglycemia; E87.5 Hyperkalemia; E78.5 Hyperlipidemia, unspecified; D72.829 Elevated white blood cell count, unspecified; R94.31 Abnormal electrocardiogram [ECG] [EKG]; Z91.14 Patient's other noncompliance with medication regimen
CPT/HCPCS: 36415; 71010; 80048; 80053; 80061; 80076; 81001; 81003; 82962; 83036; 83735; 83880; 84100; 84443; 84484; 85025; 85610; 85730; 87081; 93005; 93306; 93458; 96372; 96374; 96375; C1725; C1760; C1769; C1874; C1887; C1894; C9606; J1644; J1815; J2250; J2270; J2405; J3010; J7040; Q9967